=== PATIENT | male | born 1955 | race African-American/Black ===

== ENCOUNTER 2017-05-10 09:48 | Emergency (ER) | payer MEDICARE, MEDICAID ==
[2017-05-10 10:23] LABS: #Basophils 0.1 thou/uL (0.0-0.2); #Eosinphils 0.1 thou/uL (0.0-0.7); #Lymphocytes 1.9 thou/uL (1.20-3.40); #Monocytes 0.5 thou/uL (0.11-0.59); #Neutrophils 3.3 thou/uL (1.40-6.50); %Basophils 0.9 % (0.0-1.0); %Eosinophils 1.5 % (0.0-10.0); %Lymphocytes 32.4 % (21.0-51.0); %Monocytes 8.4 % (0.0-10.0); %Neutrophils 56.8 % (42.0-75.0); Hemoglobin 15.4 g/dL (14.0-18.0); Mean Corpuscular HGB CONC 33.7 g/dL (32.0-36.0); Mean Corpuscular Hemoglobin 32.2 pg (27.0-31.0); Mean Corpuscular Volume 95.6 fl (80.0-94.0); Mean Platelet Volume 6.2 fL (7.4-10.4); Platelet Count 207 thou/uL (130-400); Red Blood Cell (RBC) Count 4.79 mill/uL (4.70-6.10); White Blood Cell (WBC) Count 5.8 thou/uL (4.8-10.8)
[2017-05-10 10:38] LABS: ALT (SGPT) 12 U/L (8-55); AST (SGOT) 17 U/L (5-34); Albumin 4.2 g/dL (3.5-5.0); Alkaline Phosphatase 73 U/L (40-150); Anion Gap 13 mmol/L (10-20); BUN (Urea Nitrogen) 10 mg/dL (8.4-25.7); Bilirubin, Total 0.5 mg/dL (0.2-1.2); Calc. Creatinine Clearance 0 mL/min (70-130); Calcium 9.2 mg/dL (7.8-10.44); Carbon Dioxide 24 mmol/L (22-29); Chloride 107 mmol/L (98-107); Estimated GFR-MDRD 90; Globulin 3.7 g/dL (2.4-3.5); Glucose 92 mg/dL (70-105); Potassium 3.8 mmol/L (3.5-5.1); Protein, Total 7.9 g/dL (6.0-8.3); Sodium 140 mmol/L (136-145)
[2017-05-10 10:39] LABS: CKMB 1.1 ng/mL (0-6.6); Troponin I Less than 0.010 ng/mL (< 0.028)
[2017-05-10] MEDS ORDERED: Lisinopril 5 MG TAB ONE (11:02)
== END 2017-05-10 11:58 | disposition home or self-care (01) ==
LOC: BURERS 09:48
DX: I10 Essential (primary) hypertension (principal); F31.9 Bipolar disorder, unspecified; F41.9 Anxiety disorder, unspecified; F17.210 Nicotine dependence, cigarettes, uncomplicated; Z79.899 Other long term (current) drug therapy
CPT/HCPCS: 36415; 80053; 82553; 84484; 85025; 93005

== ENCOUNTER 2017-05-17 11:42 | Outpatient (CLI) | payer MEDICARE, OTHER ==
[2017-05-17 12:53] LABS: #Basophils 0.1 thou/uL (0.0-0.2); #Eosinphils 0.1 thou/uL (0.0-0.7); #Lymphocytes 2.3 thou/uL (1.20-3.40); #Monocytes 0.5 thou/uL (0.11-0.59); #Neutrophils 4.6 thou/uL (1.40-6.50); %Basophils 1.5 % (0.0-1.0); %Eosinophils 1.2 % (0.0-10.0); %Lymphocytes 30.1 % (21.0-51.0); %Monocytes 6.7 % (0.0-10.0); %Neutrophils 60.5 % (42.0-75.0); Hemoglobin 14.3 g/dL (14.0-18.0); Mean Corpuscular HGB CONC 33.6 g/dL (32.0-36.0); Mean Corpuscular Hemoglobin 32.6 pg (27.0-31.0); Mean Corpuscular Volume 96.8 fl (80.0-94.0); Mean Platelet Volume 7.3 fL (7.4-10.4); Platelet Count 249 thou/uL (130-400); RBC Distribution Width 12.1 % (11.5-14.5); Red Blood Cell (RBC) Count 4.41 mill/uL (4.70-6.10); White Blood Cell (WBC) Count 7.6 thou/uL (4.8-10.8)
[2017-05-17 13:02] LABS: ALT (SGPT) 14 U/L (8-55); AST (SGOT) 17 U/L (5-34); Albumin 4.2 g/dL (3.5-5.0); Alkaline Phosphatase 70 U/L (40-150); Anion Gap 12 mmol/L (10-20); BUN (Urea Nitrogen) 13 mg/dL (8.4-25.7); Bilirubin, Total 0.2 mg/dL (0.2-1.2); Calc. Creatinine Clearance 0 mL/min (70-130); Calcium 9.2 mg/dL (7.8-10.44); Carbon Dioxide 23 mmol/L (22-29); Chloride 113 mmol/L (98-107); Estimated GFR-MDRD 73; Globulin 3.1 g/dL (2.4-3.5); Glucose 100 mg/dL (70-105); Potassium 3.8 mmol/L (3.5-5.1); Protein, Total 7.3 g/dL (6.0-8.3); Sodium 144 mmol/L (136-145)
== END 2017-05-17 11:43 | disposition home or self-care (01) ==
LOC: HPCALD 11:42
PROVIDERS: ATTEND Family Medicine
DX: I10 Essential (primary) hypertension (principal)
CPT/HCPCS: 36415; 80053; 84443; 85025

== ENCOUNTER 2017-05-23 11:36 | Outpatient (CLI) | payer MEDICARE, OTHER ==
[2017-05-23 13:00] LABS: Cardiac Risk 4.3 (Less than 4.5)
== END 2017-05-23 11:37 | disposition home or self-care (01) ==
LOC: HPCALD 11:36
PROVIDERS: ATTEND Family Medicine
DX: E78.2 Mixed hyperlipidemia (principal)
CPT/HCPCS: 80061

== ENCOUNTER 2019-10-08 08:31 | Outpatient (CLI) | payer MEDICARE, MEDICAID ==
[2019-10-08 10:28] LABS: Anion Gap 13 mmol/L (10-20); BUN (Urea Nitrogen) 8 mg/dL (8.4-25.7); Calc. Creatinine Clearance 0 mL/min (70-130); Carbon Dioxide 28 mmol/L (23-31); Chloride 106 mmol/L (98-107); Estimated GFR-MDRD 75; Glucose 61 mg/dL (80-115); Potassium 3.9 mmol/L (3.5-5.1); Sodium 143 mmol/L (136-145)
--- NOTE | 2019-10-09 08:05 | ULT ---
BILATERAL RENAL ULTRASOUND: Date: 10/08/2019 Ultrasonography of the kidneys shows each to be of normal overall appearance. Cortex is of normal thi ckness bilaterally. At most, the cortex may be slightly more echogenic than normal in the right kidn ey, but the finding is marginal. No mass or hydronephrosis seen in either. Right kidney measures 10.1 x 5.2 x 4.7 cm. Left kidney measures 11.2 x 4.8 x 4.3 cm. Bilateral ureteral jets were seen in the bladder. No masses seen internally. Post-void films show navya rly complete emptying of the bladder. The bladder wall thickness is 6 mm, which is slightly larger th an expected, but can be seen in patients with outlet obstruction or cystitis. Occasionally, this is j ust normal for this patient. IMPRESSION: 1. No evidence of acute urinary tract obstruction. 2. Cortical thickness is normal in each kidney. Question of minimal increased echogenicity in the ri ght renal cortex. 3. Slight uniform thickening of the urinary bladder wall. POS: HOME
== END 2019-10-08 08:32 | disposition home or self-care (01) ==
LOC: BURULT 08:31
PROVIDERS: ATTEND Family Medicine
DX: N28.9 Disorder of kidney and ureter, unspecified (principal)
CPT/HCPCS: 36415; 76770; 80048

== ENCOUNTER 2020-11-27 15:27 | Inpatient (IN) | payer MEDICARE, MEDICAID ==
[2020-11-27 17:17] VITALS: BMI 27.1
[2020-11-27] MEDS ORDERED: Ondansetron ODT 4 MG TAB PO PRN (22:34)
[2020-11-27] MEDS ORDERED: Loratadine 10 MG TAB PO PRN (22:34)
[2020-11-27] MEDS ORDERED: Polyethylene Glycol 3350 17 GM Packet PO PRN (22:34)
[2020-11-27] MEDS ORDERED: Senokot S 8.6-50 MG TAB PO PRN (22:34)
[2020-11-27] MEDS ORDERED: Isosorbide Dinitrate 20 MG TAB PO SCH (23:00)
[2020-11-27] MEDS ORDERED: Atorvastatin Calcium 40 MG TAB PO SCH (23:00)
[2020-11-27] MEDS ORDERED: risperiDONE 0.5 MG TAB PO SCH (23:00)
[2020-11-27] MEDS ORDERED: busPIRone HCl 5 MG TAB PO SCH (23:00)
[2020-11-27] MEDS ORDERED: Benztropine 1 MG TAB PO SCH (23:00)
[2020-11-27] MEDS ORDERED: cloNIDine 0.1 MG TAB PO SCH (23:00)
[2020-11-27] MEDS ORDERED: hydrALAZINE 25 MG TAB PO SCH (23:00)
[2020-11-28] MEDS: Isosorbide Dinitrate 20 MG TAB PO SCH ×3 (10:20→20:52)
[2020-11-28] MEDS: hydrALAZINE 25 MG TAB PO SCH ×3 (10:21→20:50)
[2020-11-28] MEDS: Aspirin 81 mg Enteric Coated Tablet PO SCH (10:23)
[2020-11-28] MEDS: NIFEdipine XL 30 MG TAB PO SCH (10:25)
[2020-11-28] MEDS: cloNIDine 0.1 MG TAB PO SCH ×2 (10:26→20:51)
[2020-11-28] MEDS: busPIRone HCl 5 MG TAB PO SCH ×2 (10:28→20:51)
[2020-11-28] MEDS: risperiDONE 0.5 MG TAB PO SCH ×2 (10:29→20:51)
[2020-11-28] MEDS: Nitroglycerin 0.2mg/Hour PATCH TOP SCH (12:00)
[2020-11-28] MEDS: Benztropine 1 MG TAB PO SCH (20:52)
[2020-11-28] MEDS: Atorvastatin Calcium 40 MG TAB PO SCH (20:52)
[2020-11-29] MEDS ORDERED: Albuterol Sulfate 2.5 mg/3 ml Neb NEB PRN (00:36)
[2020-11-29] MEDS: NIFEdipine XL 30 MG TAB PO SCH (09:28)
[2020-11-29] MEDS: busPIRone HCl 5 MG TAB PO SCH ×2 (09:29→21:03)
[2020-11-29] MEDS: risperiDONE 0.5 MG TAB PO SCH ×2 (09:29→21:03)
[2020-11-29] MEDS: cloNIDine 0.1 MG TAB PO SCH ×2 (09:30→20:58)
[2020-11-29] MEDS: hydrALAZINE 25 MG TAB PO SCH ×3 (09:30→21:03)
[2020-11-29] MEDS: Aspirin 81 mg Enteric Coated Tablet PO SCH (09:31)
[2020-11-29] MEDS: Isosorbide Dinitrate 20 MG TAB PO SCH ×3 (09:31→21:03)
[2020-11-29] MEDS: Nitroglycerin 0.2mg/Hour PATCH TOP SCH (10:07)
[2020-11-29] MEDS: Benztropine 1 MG TAB PO SCH (21:02)
[2020-11-29] MEDS: Atorvastatin Calcium 40 MG TAB PO SCH (21:02)
[2020-11-29] MEDS: Lorazepam 0.5 MG TAB PO SCH (21:03)
[2020-11-30] MEDS: Isosorbide Dinitrate 20 MG TAB PO SCH ×3 (08:25→20:06)
[2020-11-30] MEDS: NIFEdipine XL 30 MG TAB PO SCH (08:26)
[2020-11-30] MEDS: risperiDONE 0.5 MG TAB PO SCH ×2 (08:26→20:11)
[2020-11-30] MEDS: Aspirin 81 mg Enteric Coated Tablet PO SCH (08:26)
[2020-11-30] MEDS: cloNIDine 0.1 MG TAB PO SCH ×2 (08:27→20:06)
[2020-11-30] MEDS: busPIRone HCl 5 MG TAB PO SCH ×2 (08:28→20:07)
[2020-11-30] MEDS: hydrALAZINE 25 MG TAB PO SCH ×3 (08:31→20:05)
[2020-11-30] MEDS: Nitroglycerin 0.2mg/Hour PATCH TOP SCH (08:32)
[2020-11-30] MEDS: Atorvastatin Calcium 40 MG TAB PO SCH (20:06)
[2020-11-30] MEDS: Benztropine 1 MG TAB PO SCH (20:06)
[2020-11-30] MEDS: Lorazepam 0.5 MG TAB PO SCH (20:09)
[2020-12-01] MEDS: Isosorbide Dinitrate 20 MG TAB PO SCH ×3 (08:35→20:17)
[2020-12-01] MEDS: Aspirin 81 mg Enteric Coated Tablet PO SCH (08:35)
[2020-12-01] MEDS: NIFEdipine XL 30 MG TAB PO SCH (08:35)
[2020-12-01] MEDS: cloNIDine 0.1 MG TAB PO SCH ×2 (08:36→20:16)
[2020-12-01] MEDS: risperiDONE 0.5 MG TAB PO SCH ×2 (08:37→20:15)
[2020-12-01] MEDS: busPIRone HCl 5 MG TAB PO SCH ×2 (08:37→20:16)
[2020-12-01] MEDS: hydrALAZINE 25 MG TAB PO SCH ×3 (08:38→20:15)
[2020-12-01] MEDS: Nitroglycerin 0.2mg/Hour PATCH TOP SCH (08:39)
[2020-12-01] MEDS: Atorvastatin Calcium 40 MG TAB PO SCH (20:16)
[2020-12-01] MEDS: Benztropine 1 MG TAB PO SCH (20:17)
[2020-12-01] MEDS: Lorazepam 0.5 MG TAB PO SCH (20:17)
[2020-12-02] MEDS: hydrALAZINE 25 MG TAB PO SCH ×3 (10:17→20:48)
[2020-12-02] MEDS: Isosorbide Dinitrate 20 MG TAB PO SCH ×3 (10:18→20:49)
[2020-12-02] MEDS: NIFEdipine XL 30 MG TAB PO SCH (10:18)
[2020-12-02] MEDS: Aspirin 81 mg Enteric Coated Tablet PO SCH (10:18)
[2020-12-02] MEDS: cloNIDine 0.1 MG TAB PO SCH ×2 (10:19→20:49)
[2020-12-02] MEDS: Nitroglycerin 0.2mg/Hour PATCH TOP SCH (10:20)
[2020-12-02] MEDS: risperiDONE 0.5 MG TAB PO SCH ×2 (10:20→20:50)
[2020-12-02] MEDS: busPIRone HCl 5 MG TAB PO SCH ×2 (10:26→20:49)
[2020-12-02] MEDS: Atorvastatin Calcium 40 MG TAB PO SCH (20:49)
[2020-12-02] MEDS: Benztropine 1 MG TAB PO SCH (20:50)
[2020-12-02] MEDS: Lorazepam 0.5 MG TAB PO SCH (20:50)
[2020-12-03] MEDS: Aspirin 81 mg Enteric Coated Tablet PO SCH (09:02)
[2020-12-03] MEDS: busPIRone HCl 5 MG TAB PO SCH ×2 (09:03→20:33)
[2020-12-03] MEDS: risperiDONE 0.5 MG TAB PO SCH ×2 (09:07→20:33)
[2020-12-03] MEDS: NIFEdipine XL 30 MG TAB PO SCH (09:07)
[2020-12-03] MEDS: hydrALAZINE 25 MG TAB PO SCH ×3 (09:08→20:32)
[2020-12-03] MEDS: cloNIDine 0.1 MG TAB PO SCH ×2 (09:10→20:33)
[2020-12-03] MEDS: Isosorbide Dinitrate 20 MG TAB PO SCH ×3 (09:18→20:34)
[2020-12-03] MEDS: Nitroglycerin 0.2mg/Hour PATCH TOP SCH (09:21)
[2020-12-03] MEDS: Atorvastatin Calcium 40 MG TAB PO SCH (20:33)
[2020-12-03] MEDS: Benztropine 1 MG TAB PO SCH (20:33)
[2020-12-03] MEDS: Lorazepam 0.5 MG TAB PO SCH (20:34)
[2020-12-04 05:39] VITALS: TEMP 98.5
[2020-12-04] MEDS: Aspirin 81 mg Enteric Coated Tablet PO SCH (09:02)
[2020-12-04] MEDS: hydrALAZINE 25 MG TAB PO SCH (09:02)
[2020-12-04] MEDS: cloNIDine 0.1 MG TAB PO SCH (09:03)
[2020-12-04] MEDS: NIFEdipine XL 30 MG TAB PO SCH (09:03)
[2020-12-04] MEDS: busPIRone HCl 5 MG TAB PO SCH (09:04)
[2020-12-04] MEDS: Isosorbide Dinitrate 20 MG TAB PO SCH (09:04)
[2020-12-04] MEDS: risperiDONE 0.5 MG TAB PO SCH (09:05)
[2020-12-04] MEDS: Nitroglycerin 0.2mg/Hour PATCH TOP SCH (09:20)
[2020-12-04 09:26] VITALS: BP 147/70
== END 2020-12-04 13:46 | disposition home or self-care (01) | DRG 947 ==
LOC: BURMED 16:11
PROVIDERS: ADMIT Family Medicine; ATTEND Family Medicine
DX: R53.81 Other malaise (principal); I63.9 Cerebral infarction, unspecified; J96.01 Acute respiratory failure with hypoxia; I10 Essential (primary) hypertension; F31.9 Bipolar disorder, unspecified; F41.9 Anxiety disorder, unspecified; Z79.02 Long term (current) use of antithrombotics/antiplatelets; E78.5 Hyperlipidemia, unspecified; F17.210 Nicotine dependence, cigarettes, uncomplicated; Z82.49 Family history of ischemic heart disease and other diseases of the circulatory system; I16.0 Hypertensive urgency; F10.10 Alcohol abuse, uncomplicated; F20.9 Schizophrenia, unspecified; R00.1 Bradycardia, unspecified; T78.3XXA Angioneurotic edema, initial encounter
CPT/HCPCS: J7611

== ENCOUNTER 2021-08-04 10:09 | Emergency (ER) | payer MEDICARE, MEDICAID | END 2021-08-04 10:23 | disposition home or self-care (01) | LOC: BURERS 10:09 | DX: I10 Essential (primary) hypertension (principal); Z86.73 Personal history of transient ischemic attack (TIA), and cerebral infarction without residual deficits; F17.210 Nicotine dependence, cigarettes, uncomplicated | CPT/HCPCS: 99283 ==

== ENCOUNTER 2024-07-15 08:03 | Emergency (ER) | payer MEDICARE, OTHER ==
[2024-07-15 08:47] LABS: #Basophils 0.1 thou/uL (0.0-0.2); #Eosinophils 0.1 thou/uL (0.0-0.7); #Lymphocytes 2.3 thou/uL (1.20-3.40); #Monocytes 0.4 thou/uL (0.11-0.59); %Basophils 1.6 % (0.0-1.0); %Eosinophils 1.8 % (0.0-10.0); %Lymphocytes 33.9 % (21.0-51.0); %Monocytes 5.1 % (0.0-10.0); %Neutrophils 57.6 % (42.0-75.0); Hematocrit 40.5 % (42.0-52.0); Hemoglobin 13.5 g/dL (14.0-18.0); Mean Corpuscular HGB CONC 33.3 g/dL (32.0-36.0); Mean Corpuscular Hemoglobin 30.6 pg (27.0-31.0); Mean Corpuscular Volume 91.9 fl (78.0-98.0); Mean Platelet Volume 7.1 fL (7.4-10.4); Platelet Count 203 10x3/uL (130-400); RBC Distribution Width 11.7 % (11.5-14.5); Red Blood Cell (RBC) Count 4.41 mill/uL (4.70-6.10); White Blood Cell (WBC) Count 6.9 10x3/uL (4.8-10.8)
[2024-07-15 08:48] LABS: ALT (SGPT) 9 U/L (8-55); AST (SGOT) 14 U/L (5-34); Albumin 3.6 g/dL (3.4-4.8); Alkaline Phosphatase 79 U/L (40-110); Anion Gap 13 mmol/L (10-20); BUN (Urea Nitrogen) 16 mg/dL (8.4-25.7); Bilirubin, Total 0.3 mg/dL (0.2-1.2); Calc. Creatinine Clearance 0 mL/min (70-130); Calcium 9.1 mg/dL (7.8-10.44); Carbon Dioxide 25 mmol/L (23-31); Chloride 107 mmol/L (98-107); Estimated GFR 49; Globulin 3.6 g/dL (2.4-3.5); Glucose 87 mg/dL (80-115); Protein, Total 7.2 g/dL (5.8-8.1); Sodium 141 mmol/L (136-145)
[2024-07-15 08:49] LABS: Troponin I 0.086 ng/mL (< 0.028)
[2024-07-15] MEDS ORDERED: Aspirin Chewable 81 MG TAB ONE (08:55)
== END 2024-07-15 09:34 | disposition left against medical advice (07) ==
LOC: BURERS 08:03
DX: R06.00 Dyspnea, unspecified (principal); R79.89 Other specified abnormal findings of blood chemistry; I10 Essential (primary) hypertension; I63.9 Cerebral infarction, unspecified; I25.2 Old myocardial infarction; F17.210 Nicotine dependence, cigarettes, uncomplicated
CPT/HCPCS: 71045; 80053; 83735; 84484; 85025; 93005